=== PATIENT | female | born 1940 | race Caucasian/White ===

== ENCOUNTER 2017-11-30 22:22 | Emergency (ER) | payer OTHER ==
[2017-11-30] MEDS ORDERED: EPINEPHrine 1 MG/10 ML SYR IV ONE (22:23)
--- NOTE | 2017-12-01 00:07 | EDPHYS ---
Physician Documentation [facility] Name: Kim Sarmiento Age: 77 yrs Sex: Female : 1940 Arrival Date: 11/30/2017 Time: 22:24 Bed 3 Private MD: ED Physician Armando Lujan HPI: 11/30 23:58 This 77 yrs old Female presents to ER via EMS with complaints of CPR. pkl 23:58 Preceding the arrest, the patient collapsed. The arrest occurred at home. Pre-hospital pkl course: The arrest was witnessed Bystanders at the scene did not perform CPR. EMS care prior to arrival: initiation of ACLS. Historical: - Allergies: 23:40 Trileptal; jd3 - Home Meds: 23:40 alendronate 35 mg Oral tab 1 tab once wkly [Active]; aspirin 81 mg Oral tab 1 tab once jd3 daily [Active]; atorvastatin 40 mg Oral tab 1 tab once daily [Active]; azathioprine 50 mg Oral tab 1 tab 2 times per day [Active]; calcium 1600 mg daily [Active]; folic acid 800 mcg Oral tab 1 tab once daily [Active]; gabapentin 100 mg Oral tab 2 caps 3 times per day [Active]; Humulin 70/30 30 units Sub-Q twice a day [Active]; latanoprost 0.005% eye drops at bedtime [Active]; levothyroxine 100 mcg tab 1 tab once daily [Active]; metoprolol 50 mg 2 pills daily [Active]; [place] 5-325 mg Oral tab [Active]; omeprazole 20 mg Oral cpDR 1 cap once daily [Active]; Plavix 75 mg Oral tab 1 tab once daily [Active]; tikturna HCT 150/12.5 mg daily [Active]; Vitamin D Oral 500 unit daily [Active]; - PMHx: 23:40 autoimmune hepatitis; Diabetes - IDDM; Hypertension; Hypothyroidism; jd3 - Immunization history:: Adult Immunizations unknown. - Social history:: Smoking status: unknown. - Ebola Screening: : Patient negative for fever greater than or equal to 101.5 degrees Fahrenheit, and additional compatible Ebola Virus Disease symptoms. ROS: 23:58 Unable to obtain ROS due to comatose state. pkl Exam: 23:58 Head/Face: Normocephalic, atraumatic. pkl 23:58 Eyes: Pupils: are fixed and dilated. 23:58 ENT: Exam is negative for acute changes. 23:58 Neck: Exam negative for acute changes. 23:58 Chest/axilla: Exam negative for acute changes. 23:58 Cardiovascular: Rhythm: asystole, Pulses: not palpable. 23:58 Respiratory: Respiratory rate: Patient intubated and ventilated 23:58 Abdomen/GI: Exam negative for acute changes. 23:58 Back: Exam negative for acute changes. 23:58 : Exam negative for acute changes. 23:58 Musculoskeletal/extremity: Exam is negative for acute changes. 23:58 Skin: Exam negative for rash. 23:58 Neuro: Patient unresponsive. CPR in progress. Vital Signs: 22:19 Temp 98.3(R); Weight 77.11 kg (R); Height 5 ft. 8 in. (172.72 cm) (R); jd3 22:19 Body Mass Index 25.85 (77.11 kg, 172.72 cm) jd3 22:19 pt was asystole with no palpable pulses or blood pressure. intubated and being bagged. jd3 Procedures: 23:58 CPR: See CPR flow sheet. despite ED evaluation and treatment, the patient . CPR pkl was stopped at 22:24. MDM: 23:58 Data reviewed: vital signs, nurses notes. pkl 12/01 00:07 Patient medically screened. pkl Administered Medications: 11/30 22:22 Drug: EPINEPHrine 0.1mg/mL 1:10,000 1 mg {Note: IO to left lower leg.} Route: IVP; jd3 Site: Other; 22:24 Follow up: Response: No change in condition jd3 22:24 Drug: Sodium Bicarbonate 1 amp {Note: IO to left lower leg.} Route: IVP; Site: Other; jd3 12/01 00:04 Follow up: Response: No change in condition jd3 Disposition: 11/30 23:58 . pkl Disposition: Patient pronounced on 11/30/17 22:24 by Armando Lujan. Impression: CPR. on arrival. - Released to Home. Signatures: Armando Lujan MD MD pkl Parish Mckeon RN RN jd3 Corrections: (The following items were deleted from the chart) 23:42 23:38 Immunization history: Adult Immunizations unknown, jd3 jradha 23:42 23:38 Social history: Smoking status: unknown jradha jd3 23:42 23:38 Ebola Screening: Patient negative for fever greater than or equal to 101.5 jradha degrees Fahrenheit, and additional compatible Ebola Virus Disease symptoms jd3 12/01 00:20 00:07 12/01/2017 00:07 Patient pronounced on 11/30/2017 at 22:24 by Pin. artie Lujan Impression: CPR. on arrival. Released to Home. pkl
--- NOTE | 2017-12-01 00:07 | ER ---
Nurse's Notes [facility] Name: Kim Sarmiento Age: 77 yrs Sex: Female : 1940 Arrival Date: 11/30/2017 Time: 22:24 Bed 3 Private MD: Diagnosis: CPR. on arrival Presentation: 11/30 22:19 Presenting complaint: EMS states: "witnessed arrest. pt went from V-fib to asystole.". jd3 Transition of care: independent living facility. Onset of symptoms was November 30, 2017. Risk Assessment: Do you want to hurt yourself or someone else? Patient reports no desire to harm self or others. Initial Sepsis Screen: Does the patient meet any 2 criteria? No. Patient's initial sepsis screen is negative. Does the patient have a suspected source of infection? No. Patient's initial sepsis screen is negative. Care prior to arrival: CPR manually performed by EMS was defibrillated and is still in progress Medication(s) given: epi X 5 and amiodarone 300/150 X 1 IO started in left leg. 22:19 Method Of Arrival: EMS: [facility] jd3 22:19 Acuity: KAUR 1 jd3 22:19 Compressions began prior to arrival. jd3 Triage Assessment: 22:19 General: Appears distressed. jd3 Historical: - Allergies: 23:40 Trileptal; jd3 - Home Meds: 23:40 alendronate 35 mg Oral tab 1 tab once wkly [Active]; aspirin 81 mg Oral tab 1 tab once jd3 daily [Active]; atorvastatin 40 mg Oral tab 1 tab once daily [Active]; azathioprine 50 mg Oral tab 1 tab 2 times per day [Active]; calcium 1600 mg daily [Active]; folic acid 800 mcg Oral tab 1 tab once daily [Active]; gabapentin 100 mg Oral tab 2 caps 3 times per day [Active]; Humulin 70/30 30 units Sub-Q twice a day [Active]; latanoprost 0.005% eye drops at bedtime [Active]; levothyroxine 100 mcg tab 1 tab once daily [Active]; metoprolol 50 mg 2 pills daily [Active]; [place] 5-325 mg Oral tab [Active]; omeprazole 20 mg Oral cpDR 1 cap once daily [Active]; Plavix 75 mg Oral tab 1 tab once daily [Active]; tikturna HCT 150/12.5 mg daily [Active]; Vitamin D Oral 500 unit daily [Active]; - PMHx: 23:40 autoimmune hepatitis; Diabetes - IDDM; Hypertension; Hypothyroidism; jd3 - Immunization history:: Adult Immunizations unknown. - Social history:: Smoking status: unknown. - Ebola Screening: : Patient negative for fever greater than or equal to 101.5 degrees Fahrenheit, and additional compatible Ebola Virus Disease symptoms. Screenin:19 Abuse screen: Denies threats or abuse. Nutritional screening: No deficits noted. jd3 Tuberculosis screening: No symptoms or risk factors identified. Fall Risk Total [place] Fall Scale indicates No Risk (0-24 pts). Assessment: 22:19 General: Behavior is unresponsive. Pain: Unable to use pain scale. Patient is jd3 unresponsive. Neuro: Level of Consciousness is unresponsive, Oriented to none. Cardiovascular: Rhythm is asystole. Respiratory: Airway via oral intubation. Derm: Skin is intact, Skin is clammy, Skin is pale, Skin temperature is cool. 22:19 Cardiac rhythm is asystole. jd3 22:19 Reassessment: received pt from EMS witnessed arrest. continued compressions on jd3 arrival. 22:19 CPR assessment: unresponsive, pupils fixed \\T\\ dilated, no respiratory effort, intubated, jd3 Ambu ventilation, pale. 22:24 Reassessment: No changes from previously documented assessment. Dr. Lujan pronounced time jd3 of . Vital Signs: 22:19 Temp 98.3(R); Weight 77.11 kg (R); Height 5 ft. 8 in. (172.72 cm) (R); jd3 22:19 Body Mass Index 25.85 (77.11 kg, 172.72 cm) jd3 22:19 pt was asystole with no palpable pulses or blood pressure. intubated and being bagged. jd3 ED Course: 22:19 Patient has correct armband on for positive identification. jd3 22:24 Patient arrived in ED. am2 22:28 Armando Lujan MD is Attending Physician. rg2 22:54 Parish Mckeon, MARA is Primary Nurse. jd3 23:38 Triage completed. jd3 23:45 Arm band placed on. jd3 23:54 No provider procedures requiring assistance completed. jd3 08/06 00:05 Armando Lujan MD is Pronouncing Provider. pkl 00:17 Patient transferred, IV remains in place. [facility] reported they would jd3 remove IO. Administered Medications: 11/30 22:22 Drug: EPINEPHrine 0.1mg/mL 1:10,000 1 mg {Note: IO to left lower leg.} Route: IVP; jd3 Site: Other; 22:24 Follow up: Response: No change in condition jd3 22:24 Drug: Sodium Bicarbonate 1 amp {Note: IO to left lower leg.} Route: IVP; Site: Other; jd3 12/01 00:04 Follow up: Response: No change in condition jd3 Outcome: 11/30 22:24 Outcome Patient jd3 12/01 00:05 Discharged to home jd3 Condition: Discharge instructions given to home 00:20 Patient left the ED. jd3 Signatures: Donnell Frank rg2 Armando Lujan MD MD pk Berna Dale am2 Parish Mckeon RN RN jd3 Corrections: (The following items were deleted from the chart) 11/30 23:41 23:32 Presenting complaint: EMS states: "witnessed arrest. pt went from V-fib to jd3 asystole." j 23:41 23:32 Onset of symptoms was November 30, 2017 [facility] j 23:41 23:32 Risk Assessment: Do you want to hurt yourself or someone else? Patient reports no j desire to harm self or others. j 23:41 23:32 Initial Sepsis Screen: Does the patient meet any 2 criteria? No. Patient's j initial sepsis screen is negative. Does the patient have a suspected source of infection? No. Patient's initial sepsis screen is negative. jd3 23:41 23:32 Care prior to arrival: CPR manually performed by EMS was defibrillated and is jd3 still in progress Medication(s) given: epi X 5 and amiodarone 300/150 X 1 IO started in left leg. jd3 23:41 23:32 Transition of care: independent living facility. [facility] j 23:41 23:32 Method Of Arrival: EMS: [facility] j 23:41 23:32 Acuity: KAUR 1 [facility] j 23:42 23:38 Immunization history: Adult Immunizations unknown, jd3 jd3 23:42 23:38 Social history: Smoking status: unknown jd3 jd3 23:42 23:38 Ebola Screening: Patient negative for fever greater than or equal to 101.5 jd3 degrees Fahrenheit, and additional compatible Ebola Virus Disease symptoms jd3 12/01 00:18 11/30 22:19 CPR assessment: unresponsive, pupils fixed \\T\\ dilated, no respiratory jd3 effort, intubated, Ambu ventilation, pale, jd3 12/01 00:19 11/30 22:19 Reassessment: received pt from EMS. continued compressions on arrival. jd3 jd3 12/01 01:13 08 22:19 77.11 kg Reported; Height 5 ft. 8 in. Reported; BMI: 25.8; pt was asystole jd3 with no palpable pules or blood pressure. intabated and woody baged; jd3 12/01 01:41 11/30 22:19 Presenting complaint: EMS states: "witnessed arrest. pt went from V-fib to jd3 asystole." jd3 12/01 01:41 11/30 23:53 General: Appears distressed, jd3 jd3 12/01 01:42 08 22:24 Reassessment: No changes from previously documented assessment. Dr. Lujan jd3 pronounced TOD jd3 12/01 01:42 11/30 22:19 CPR assessment: unresponsive, pupils fixed \\T\\ dilated, no respiratory jd3 effort, intubated, Ambu ventilation, pale, jd3 12/01 01:43 11/30 22:19 Temp 98.3F Rectal; 77.11 kg Reported; Height 5 ft. 8 in. Reported; BMI: jd3 25.8; pt was asystole with no palpable pules or blood pressure. intabated and woody baged; jd3
== END 2017-12-01 00:20 | disposition expired ==
LOC: ER 22:22
PROC: 5A12012 Performance of Cardiac Output, Single, Manual (ICD-10-PCS; principal; 2017-11-30)
DX: I46.9 Cardiac arrest, cause unspecified (principal); K75.4 Autoimmune hepatitis; E11.9 Type 2 diabetes mellitus without complications; Z79.4 Long term (current) use of insulin; I10 Essential (primary) hypertension; E03.9 Hypothyroidism, unspecified
CPT/HCPCS: 92950; J0171; 96374; 96375; 99285